=== PATIENT | female | born 1935 | race Caucasian/White ===

== ENCOUNTER → 2024-11-13 10:45 | Outpatient (REF) | payer MEDICARE, OTHER, SELFPAY | LOC: WDC 10:45 | PROVIDERS: ATTENDING PHYSICIAN Hospitalist; FAMILY PHYSICIAN Internal Medicine | DX: Z12.31 Encounter for screening mammogram for malignant neoplasm of breast (principal) | CPT/HCPCS: 77063; 77067 ==